=== PATIENT | male | born 1990 | race African-American/Black ===

== ENCOUNTER 2024-07-02 16:17 | Emergency (ER) | payer MEDICAID ==
[~2024-07-02] VITALS: Ht 188 cm; Wt 81.6 kg
[~2024-07-02 16:17] MED LIST: MAG355OR21 MT; ONDA4TAB50 MT; PROT40 MT
[2024-07-02 16:21] VITALS: BP 126/73; PULSE 67; RESP 20; TEMP 97.9; O2SAT 100
[2024-07-02] MEDS ORDERED: ONDANSETRON HCL 4MG/2ML INJ IV STA (16:30)
[2024-07-02] MEDS ORDERED: SODIUM CHLORIDE 0.9% 1,000 ML IV ONE ×2 (16:30→16:45)
== END 2024-07-02 23:38 | disposition left against medical advice (07) ==
LOC: ER 16:17
DX: R11.2 Nausea with vomiting, unspecified (principal); F12.90 Cannabis use, unspecified, uncomplicated; Z79.899 Other long term (current) drug therapy
CPT/HCPCS: 99281; J7030; 80048; 80320; G0480